=== PATIENT | female | born 1985 | race Two or more races ===

== ENCOUNTER 2017-02-26 19:09 | Emergency (ER) | payer SELFPAY ==
[~2017-02-26] VITALS: Ht 152.4 cm; Wt 83.4 kg
[~2017-02-26 19:09] MED LIST: AZIT250T89 PO; DAYQUIL; GUAI118L3; IBUP200C PO; ONDA4TAB7 PO
[2017-02-26] MEDS ORDERED: SODIUM CHLORIDE 0.9% 1,000ML IVBOLUS ONE (19:30)
[2017-02-26] MEDS ORDERED: ONDANSETRON 2MG/ML, 2ML IVPush ONE (19:30)
[2017-02-26] MEDS ORDERED: SODIUM CHLORIDE FLUSH 10ML SYR IVF ONE (19:30)
[2017-02-26] MEDS ORDERED: MORPHINE SULFATE 4 MG/ML, 1ML ONE ×2 (19:43→21:45)
[2017-02-26] MEDS ORDERED: KETOROLAC 30 MG/1 ML ONE (19:44)
[2017-02-26] MEDS ORDERED: ONDANSETRON 2MG/ML, 2ML ONE (19:44)
[2017-02-26 19:50] LABS: BLOOD UREA NITROGEN 11 mg/dL (7-18)
[2017-02-26 19:52] LABS: PATH.CAST-FLAG NOT PRESENT; SPERM-FLAG NOT PRESENT; SRC-FLAG NOT PRESENT; XTAL-FLAG NOT PRESENT; YLC-FLAG NOT PRESENT
[2017-02-26] MEDS: MORPHINE SULFATE 4 MG/ML, 1ML IVPush PRN ×2 (19:52→21:46)
[2017-02-26] MEDS ORDERED: CEFTRIAXONE 1,000 MG in SODIUM CHLORIDE 0.9% 100 ML IV ONE (20:00)
[2017-02-26] MEDS ORDERED: KETOROLAC 30 MG/1 ML IVPush ONE (20:00)
[2017-02-26 22:14] VITALS: BP 103/61
== END 2017-02-26 22:16 | disposition home or self-care (01) ==
LOC: ED 22:10
DX: N12 Tubulo-interstitial nephritis, not specified as acute or chronic (principal)
CPT/HCPCS: 36415; 74176; 80048; 81001; 82040; 84703; 85025; 87086; 96365; 96366; 96375; 96376; 99285; J0696; J1885; J2405; J7030

== ENCOUNTER 2017-06-02 17:27 | Emergency (ER) | payer MEDICAID, OTHER ==
[~2017-06-02] VITALS: Ht 157.5 cm; Wt 86.7 kg
[~2017-06-02 17:27] MED LIST changes: -IBUP200C PO; +IBUP200C5 PO
[2017-06-02 17:39] VITALS: BP 132/89
[2017-06-02] MEDS ORDERED: OXYcodone/APAP 5/325MG TABLET PO ONE (18:30)
[2017-06-02] MEDS ORDERED: DIAZEPAM 5 MG TABLET PO ONE (18:30)
[2017-06-02] MEDS ORDERED: IBUPROFEN 200 MG TABLET PO ONE (18:30)
[2017-06-02] MEDS ORDERED: DIAZEPAM 5 MG TABLET ONE (18:52)
[2017-06-02] MEDS ORDERED: OXYcodone/APAP 5/325MG TABLET ONE (18:52)
[2017-06-02] MEDS ORDERED: IBUPROFEN 200 MG TABLET ONE (18:53)
== END 2017-06-02 20:08 | disposition home or self-care (01) ==
LOC: ED 20:02
DX: S39.012A Strain of muscle, fascia and tendon of lower back, initial encounter (principal); M46.1 Sacroiliitis, not elsewhere classified; Z88.0 Allergy status to penicillin; Z90.49 Acquired absence of other specified parts of digestive tract; X58.XXXA Exposure to other specified factors, initial encounter; Y93.89 Activity, other specified; Y92.89 Other specified places as the place of occurrence of the external cause; Y99.8 Other external cause status
CPT/HCPCS: 99283

== ENCOUNTER 2018-03-19 18:31 | Emergency (ER) | payer MEDICAID ==
[~2018-03-19] VITALS: Ht 157.5 cm; Wt 91.7 kg
[2018-03-19 18:33] VITALS: BP 119/87
== END 2018-03-19 19:33 | disposition home or self-care (01) ==
LOC: ED 19:25
DX: J02.0 Streptococcal pharyngitis (principal)
CPT/HCPCS: 82962; 87880; 99283

== ENCOUNTER 2018-10-25 17:09 | Emergency (ER) | payer MEDICAID ==
[~2018-10-25] VITALS: Ht 152.4 cm; Wt 87.4 kg
[~2018-10-25 17:09] MED LIST changes: +FLUO10CA13 PO; +IBUP-1623 PO; -IBUP200C5 PO; +OLAN5TAB9 PO
[2018-10-25 17:12] VITALS: BP 138/96
--- NOTE | 2018-10-25 18:47 | NUR ---
BACK FROM RAD
--- NOTE | 2018-10-25 19:15 | NUR ---
ALL RESULTS BACK AT THIS TIME, CHART UP FOR RECHECK
--- NOTE | 2018-10-25 19:39 | NUR ---
PA TO BEDSIDE TO UPDATE PT ON POC
--- NOTE | 2018-10-25 19:58 | NUR ---
KNEE IMMOBILIZER APPLIED, CRUTCHES AND TEACHING GIVEN
== END 2018-10-25 20:00 | disposition home or self-care (01) ==
LOC: ED 19:20
DX: S83.92XA Sprain of unspecified site of left knee, initial encounter (principal); W18.2XXA Fall in (into) shower or empty bathtub, initial encounter; Y93.E1 Activity, personal bathing and showering; Y92.89 Other specified places as the place of occurrence of the external cause; Y99.8 Other external cause status
CPT/HCPCS: 29505; 99283

== ENCOUNTER 2019-11-14 11:07 | Emergency (ER) | payer MEDICAID ==
[~2019-11-14] VITALS: Ht 152.4 cm; Wt 91.8 kg
--- NOTE | 2019-11-14 11:27 | NUR ---
THIS IS A 34 YO FEMALE WHO PRESENTS TO THE ER C/O RIGHT EAR PAIN AND M[place]ULLOUGH X 3-4 DAYS. PT DENIES VISION CHANGES. PT AO X 4. SKIN PWD. RESP EVEN AND UNLABORED. CALL LIGHT WITHIN REACH. WILL CONT TO MONITOR PT.
[2019-11-14] MEDS ORDERED: IBUPROFEN 600 MG TABLET ONE (11:31)
[2019-11-14] MEDS ORDERED: IBUPROFEN 200 MG TABLET PO ONE (12:00)
[2019-11-14 12:13] VITALS: BP 128/89
== END 2019-11-14 12:15 | disposition home or self-care (01) ==
LOC: ED 11:50
DX: H65.01 Acute serous otitis media, right ear (principal); G43.009 Migraine without aura, not intractable, without status migrainosus; Z90.49 Acquired absence of other specified parts of digestive tract; Z98.51 Tubal ligation status; Z88.0 Allergy status to penicillin; Z90.89 Acquired absence of other organs
CPT/HCPCS: 99283

== ENCOUNTER 2020-04-11 11:01 | Emergency (ER) | payer MEDICAID ==
[~2020-04-11] VITALS: Ht 152.4 cm; Wt 98.0 kg
[2020-04-11 11:02] VITALS: BP 125/91
--- NOTE | 2020-04-11 11:11 | NUR ---
NEUROLOGY PHYSICIAN: PT WALKED BACK FROM LOBBY TO ROOM AT THIS TIME.
[2020-04-11] MEDS ORDERED: SILVER SULF. CRM 1% , 25GM ONE (11:47)
[2020-04-11] MEDS ORDERED: HYDROcodone/APAP 5/325 TABLET ONE (11:49)
--- NOTE | 2020-04-11 11:57 | NUR ---
Wound dressed with silvadene dressing. Also provided with extra supplies for home wound care Medicated per [facility]Ar
[2020-04-11] MEDS ORDERED: HYDROcodone/APAP 5/325 TABLET PO ONE (12:00)
[2020-04-11] MEDS ORDERED: SILVER SULF. CRM 1% , 25GM TP ONE (12:00)
--- NOTE | 2020-04-11 12:03 | NUR ---
TASK RN: PT MED NOTED FOR PAIN. THIN LAYER OF SULFA SILVADINE OINTMENT APPLIED TO LEFT INNER WRIST, ADAPTIC DRESSING AND KERLEX WRAP. PT TOLLERATED WELL. PT VERBALIZES UNDERSTANDING OF WORND CARE. ADDITIONAL SUPPLY'S GIVEN TO PT.
--- NOTE | 2020-04-11 12:35 | NUR ---
With reasssesment pain improved to 2/10. Discharged in the care of spouse
== END 2020-04-11 12:37 | disposition home or self-care (01) ==
LOC: ED 12:05
DX: T23.672A Corrosion of second degree of left wrist, initial encounter (principal); T32.0 Corrosions involving less than 10% of body surface; G43.909 Migraine, unspecified, not intractable, without status migrainosus; X10.2XXA Contact with fats and cooking oils, initial encounter; Y93.89 Activity, other specified; Y92.098 Other place in other non-institutional residence as the place of occurrence of the external cause; Y99.8 Other external cause status
CPT/HCPCS: 16020; 29125; 99283